=== PATIENT | male | born 1955 | race Caucasian/White ===

== ENCOUNTER 2017-04-09 18:18 | Emergency (ER) | payer OTHER ==
[~2017-04-09] VITALS: Ht 188 cm; Wt 78.0 kg
[~2017-04-09 18:18] MED LIST: CLON0.5T PO; DILT60TA PO; ENAL20TA PO; ENOX60P SQ; HYDR12.56 PO; METO50TA PO; PRAV40TA2 PO; Z.0.COMMODE-3:1; Z.0.WALKERFRONT
[2017-04-09 18:20] VITALS: BP 184/118; PULSE 113; RESP 20; TEMP 98.8; O2SAT 98
--- NOTE | 2017-04-09 21:48 | PD ---
Physical Exam Date Seen by Provider: Apr 09, 2017 Time Seen by Provider: 19:58 Narrative 61 year old male presents to the emergency department for evaluation of a scratchy, sore throat for a couple of days. He also states that he is an alcoholic and has been drinking today. His pain is 8/10. Data Data Last Documented VS Vital Signs Date Time Temp Pulse Resp B/P (MAP) Pulse Ox O2 Delivery O2 Flow Rate FiO2 04/09/17 18:20 98.8 113 20 184/118 (140) 98 Room Air MDM Supervised Visit with ARCADIO: No Narrative Course 61 year old male presents to the emergency department for sore throat and alcoholism. Patient is initially seen in triage. He left AMA before he could be placed in a medical bed. Diagnosis Primary Impression: Left against medical advice Additional Impression: Sore throat Disposition: 07 AGAINST MEDICAL ADVICE Mena Valle Apr 09, 2017 21:48
== END 2017-04-09 22:46 | disposition left against medical advice (07) ==
LOC: NED 18:18
DX: J02.9 Acute pharyngitis, unspecified (principal)
CPT/HCPCS: 99281

== ENCOUNTER 2017-06-11 14:08 | Inpatient (IN) | payer SELFPAY ==
[2017-06-11] VITALS (15 sets, daily range): BP systolic 109–134; BP diastolic 74–102; PULSE 77–140; RESP 14–25; TEMP 98–98.3; O2SAT 94–98
[~2017-06-11] VITALS: Ht 190.5 cm; Wt 89.5 kg
[2017-06-11] MEDS ORDERED: IOHEXOL 350 MG/ML 10 ML VIAL (for RAD DIAG) IVCONTRAST ONE (14:09)
[2017-06-11] MEDS ORDERED: SODIUM CHLORIDE 0.9% FLUSH 10 ML FLUSH IV FLUSH PRN ×4 (14:30→18:15)
[2017-06-11] MEDS ORDERED: DILTIAZEM HCL 25 MG/5 ML VIAL IV PUSH ONE (14:30)
[2017-06-11] MEDS ORDERED: SODIUM CHLOR 0.9% 1000 ML INJ 1,000 ML IV ONE (14:30)
--- NOTE | 2017-06-11 14:31 | PD ---
HPI Chief Complaint: Chest Pain Time Seen by Provider: 14:23 Travel History International Travel<30 days: No Contact w/Intl Traveler<30days: No Traveled to known affect area: No History of Present Illness HPI 62-year-old male presents emergency department via [facility] complaining of chest pain, shortness of breath that started last night prior to going to bed. Patient states that his previous chest pain is 3/10, midsternal, increase with deep breaths, and nonradiating. Nothing seems to improve his pain. He says that he "cannot catch up" referring to the shortness of breath. Says he has had a cough for a number of days along with intermittent lower extremity edema for 1 week. He denies fever, chills, abdominal pain, back pain, leg pain. Says he has a history of hypertension and chronic alcohol abuse. Says that he has been feeling "shaky" today as he normally drinks large quantities of alcohol throughout the day. Says he normally drinks a sixpack and several shots and this is been chronic for several years. Says he had 2 drinks today which is abnormal for him. States he normally drinks much more than that by now. Says that he went to [facility] 3 weeks with an 'abnormal rhythm' and they converted him to 'normal'. Says this approximately 3 weeks ago and is not placed on the additional medications. Says he does not know all of his medications and that his has information. He does smoke approximately 10 cigarettes and has been for a number of years. Dr. Chandra is his PCP. [facility] Past Medical History Arthritis: Yes Autoimmune Disease: No Blood Disorders: No Anxiety: Yes Depression: No Heart Rhythm Problems: No Cancer: No Cardiovascular Problems: No High Cholesterol: Yes Chest Pain: No Congestive Heart Failure: No COPD: Yes Diabetes: No Endocrine: No Glaucoma: No Genitourinary: No Hepatitis: No Hiatal Hernia: No Hypertension: Yes Immune Disorder: No Musculoskeletal: Yes (ARTHRITIS) Neurologic: No Psychiatric: No Reproductive: No Respiratory: No Myocardial Infarction: No Thyroid Disease: No Influenza Vaccination: No Past Surgical History Abdominal Surgery: Yes (BILAT ING HERNIA) AICD: No Ear Surgery: No Eye Surgery: No Genitourinary Surgery: No Gynecologic Surgery: No Joint Replacement: Yes (BILAT HIP) Oral Surgery: No Pacemaker: No Other Surgery: Yes Social History Alcohol Use: Yes (HEAVILY) Tobacco Use: Yes (1 PPD) Substance Use: No Allergies-Medications (Allergen,Severity, Reaction): Coded Allergies: codeine (Unverified Allergy, Severe, DRY TONGUE, 11/04/16) Reported Meds & Prescriptions Reported Meds & Active Scripts Active Review of Systems Except as stated in HPI: all other systems reviewed are Neg Physical Exam Narrative GENERAL: Well-developed, well-nourished, tremulous SKIN: Focused skin assessment warm/dry. HEAD: Atraumatic. Normocephalic. EYES: Pupils equal and round. No scleral icterus. No injection or drainage. ENT: No nasal bleeding or discharge. Mucous membranes pink and moist. NECK: Trachea midline. No JVD. No lymphadenopathy CARDIOVASCULAR: Tachycardic rate, irregularly irregular. No murmur appreciated. RESPIRATORY: No accessory muscle use. Clear to auscultation. Breath sounds equal bilaterally. GASTROINTESTINAL: Abdomen soft, non-tender, nondistended. Hepatic and splenic margins not palpable. No CVA tenderness MUSCULOSKELETAL: No obvious deformities. No clubbing. No cyanosis. Mild lower extremity edema. Homans sign negative NEUROLOGICAL: Awake and alert. No obvious cranial nerve deficits. Motor grossly within normal limits. Normal speech. PSYCHIATRIC: Appropriate mood and affect; insight and judgment normal. Data Data Last Documented VS Vital Signs Date Time Temp Pulse Resp B/P (MAP) Pulse Ox O2 Delivery O2 Flow Rate FiO2 06/11/17 18:00 105 129/90 (103) 06/11/17 17:21 20 97 Room Air 06/11/17 14:26 98.0 Orders Orders Ecg Monitoring (06/11/17 14:23) Blood Pressure (06/11/17 14:23) Iv Access Insert/Monitor (06/11/17 14:23) Oximetry (06/11/17 14:23) Vital Signs (06/11/17 14:23) Diltiazem Inj (Cardizem Inj) (06/11/17 14:30) Sodium Chloride 0.9% Flush (Ns Flush) (06/11/17 14:30) Electrocardiogram (06/11/17 14:23) B-Type Natriuretic Peptide (06/11/17 14:23) Ckmb (Isoenzyme) Profile (06/11/17 14:23) Complete Blood Count With Diff (06/11/17 14:23) Comprehensive Metabolic Panel (06/11/17 14:23) Magnesium (Mg) (06/11/17 14:23) Prothrombin Time / Inr (Pt) (06/11/17 14:23) Act Partial Throm Time (Ptt) (06/11/17 14:23) Troponin I (06/11/17 14:23) Oxygen Administration (06/11/17 14:23) Ct Pulmonary Angiogram (06/11/17 14:23) Urinalysis - C+S If Indicated (06/11/17 14:23) Alcohol (Ethanol) (06/11/17 14:23) Sodium Chlor 0.9% 1000 Ml Inj (Ns 1000 M (06/11/17 14:30) Aspirin Chew (Aspirin Chew) (06/11/17 14:45) Diltiazem Inj (Cardizem Inj) (06/11/17 15:30) Diltiazem Inj (Cardizem Inj) (06/11/17 15:45) Lorazepam Inj (Ativan Inj) (06/11/17 15:45) Iohexol 350 Inj (Omnipaque 350 Inj) (06/11/17 14:09) Admit Order (Ed Use Only) (06/11/17 18:13) Labs Laboratory Tests Test 06/11/17 14:47 White Blood Count 5.6 TH/MM3 Red Blood Count 4.09 MIL/MM3 Hemoglobin 13.1 GM/DL Hematocrit 39.2 % Mean Corpuscular Volume 95.9 FL Mean Corpuscular Hemoglobin 32.0 PG Mean Corpuscular Hemoglobin Concent 33.4 % Red Cell Distribution Width 15.5 % Platelet Count 118 TH/MM3 Mean Platelet Volume 9.1 FL Neutrophils (%) (Auto) 76.5 % Lymphocytes (%) (Auto) 11.7 % Monocytes (%) (Auto) 9.4 % Eosinophils (%) (Auto) 0.6 % Basophils (%) (Auto) 1.8 % Neutrophils # (Auto) 4.3 TH/MM3 Lymphocytes # (Auto) 0.7 TH/MM3 Monocytes # (Auto) 0.5 TH/MM3 Eosinophils # (Auto) 0.0 TH/MM3 Basophils # (Auto) 0.1 TH/MM3 CBC Comment DIFF FINAL Differential Comment Prothrombin Time 11.7 SEC Prothromb Time International Ratio 1.2 RATIO Activated Partial Thromboplast Time 29.0 SEC Blood Urea Nitrogen 5 MG/DL Creatinine 0.73 MG/DL Random Glucose 83 MG/DL Total Protein 7.1 GM/DL Albumin 3.1 GM/DL Calcium Level 8.0 MG/DL Magnesium Level 1.7 MG/DL Alkaline Phosphatase 165 U/L Aspartate Amino Transf (AST/SGOT) 69 U/L Alanine Aminotransferase (ALT/SGPT) 32 U/L Total Bilirubin 0.9 MG/DL Sodium Level 142 MEQ/L Potassium Level 3.8 MEQ/L Chloride Level 110 MEQ/L Carbon Dioxide Level 21.3 MEQ/L Anion Gap 11 MEQ/L Estimat Glomerular Filtration Rate 109 ML/MIN Total Creatine Kinase 57 U/L Troponin I 0.03 NG/ML B-Type Natriuretic Peptide 1192 PG/ML Ethyl Alcohol Level 59 MG/DL [facility] Medical Decision Making Medical Screen Exam Complete: Yes Emergency Medical Condition: Yes Differential Diagnosis A fib with RVR, alcoholism, Narrative Course 62y male presents to the ED via [facility] c/o chest pain with SOB that started last night prior to going to sleep. Says he went to the hospital 3 weeks ago and found an abnormal HR. Says he was converted to 'normal' and discharged home. He does not have a spanish speaking babysitter, does not take blood thinners. He has a history of HTN and chronic alcoholism. Says he drinks a six-pack of beer and several shots of liquor daily. EKG shows atrial fibrillation with RVR at rate 148. Pt did not remember his medication list so waited until to arrive and found he was discharged in March from [facility] with multiple medications to include diltiazem and digoxin. He has not been taking these medications because 'it is a lot'. Administered ASA 162mg Diltiazem 0.25mg/kg administered, response of HR to 70-90BPM however, required another dose at 45minutes. A total of 2 doses of diltiazem (0.25 and 0.35mg/kg) administered with limited response to HR 100-120BPM. CBC & BMP Diagram 06/11/17 14:47 Total Protein 7.1, Albumin 3.1 L, Calcium Level 8.0 L, Magnesium Level 1.7, Alkaline Phosphatase 165 H, Aspartate Amino Transf (AST/SGOT) 69 H, Alanine Aminotransferase (ALT/SGPT) 32, Total Bilirubin 0.9 BNP elevated at 1192 Alcohol level 59 Pt feels much better however, HR remains in lower 100s. Denies SOB, Chest pain. Initiated diliazem drip for better rate control. Pt will be admitted for obs for A fib with RVR, CHF. CIWA protocol recommended. Diagnosis Primary Impression: Atrial fibrillation with rapid ventricular response Additional Impressions: Nonadherence to medication Chronic alcoholism CHF (congestive heart failure) Qualified Codes: I50.9 - Heart failure, unspecified Admitting Information Admitting Physician Requests: Observation Condition: Stable Elisabet Aguilar Jun 11, 2017 14:31
[2017-06-11] MEDS ORDERED: ASPIRIN 81 MG CHEW TAB CHEW ONE (14:45)
--- NOTE | 2017-06-11 15:17 | PD ---
Physical Exam Narrative I, Dr. Vides, have reviewed the advance practice practitioner's documentation and am in agreement, met with the patient face to face, made the diagnosis, and the medical decision making was done by me. *My assessment and Findings: Patient is a 62 year old male who comes in complaining of chest pain and being unable to catch his breath. Exam shows tachycardia and tremors. Data Data Last Documented VS Vital Signs Date Time Temp Pulse Resp B/P (MAP) Pulse Ox O2 Delivery O2 Flow Rate FiO2 06/11/17 17:21 111 20 115/87 (96) 97 Room Air 06/11/17 14:26 98.0 Orders Orders Ecg Monitoring (06/11/17 14:23) Blood Pressure (06/11/17 14:23) Iv Access Insert/Monitor (06/11/17 14:23) Oximetry (06/11/17 14:23) Vital Signs (06/11/17 14:23) Diltiazem Inj (Cardizem Inj) (06/11/17 14:30) Sodium Chloride 0.9% Flush (Ns Flush) (06/11/17 14:30) Electrocardiogram (06/11/17 14:23) B-Type Natriuretic Peptide (06/11/17 14:23) Ckmb (Isoenzyme) Profile (06/11/17 14:23) Complete Blood Count With Diff (06/11/17 14:23) Comprehensive Metabolic Panel (06/11/17 14:23) Magnesium (Mg) (06/11/17 14:23) Prothrombin Time / Inr (Pt) (06/11/17 14:23) Act Partial Throm Time (Ptt) (06/11/17 14:23) Troponin I (06/11/17 14:23) Oxygen Administration (06/11/17 14:23) Ct Pulmonary Angiogram (06/11/17 14:23) Urinalysis - C+S If Indicated (06/11/17 14:23) Alcohol (Ethanol) (06/11/17 14:23) Sodium Chlor 0.9% 1000 Ml Inj (Ns 1000 M (06/11/17 14:30) Aspirin Chew (Aspirin Chew) (06/11/17 14:45) Diltiazem Inj (Cardizem Inj) (06/11/17 15:30) Diltiazem Inj (Cardizem Inj) (06/11/17 15:45) Lorazepam Inj (Ativan Inj) (06/11/17 15:45) Iohexol 350 Inj (Omnipaque 350 Inj) (06/11/17 14:09) Admit Order (Ed Use Only) (06/11/17 18:13) Labs Laboratory Tests Test 06/11/17 14:47 White Blood Count 5.6 TH/MM3 Red Blood Count 4.09 MIL/MM3 Hemoglobin 13.1 GM/DL Hematocrit 39.2 % Mean Corpuscular Volume 95.9 FL Mean Corpuscular Hemoglobin 32.0 PG Mean Corpuscular Hemoglobin Concent 33.4 % Red Cell Distribution Width 15.5 % Platelet Count 118 TH/MM3 Mean Platelet Volume 9.1 FL Neutrophils (%) (Auto) 76.5 % Lymphocytes (%) (Auto) 11.7 % Monocytes (%) (Auto) 9.4 % Eosinophils (%) (Auto) 0.6 % Basophils (%) (Auto) 1.8 % Neutrophils # (Auto) 4.3 TH/MM3 Lymphocytes # (Auto) 0.7 TH/MM3 Monocytes # (Auto) 0.5 TH/MM3 Eosinophils # (Auto) 0.0 TH/MM3 Basophils # (Auto) 0.1 TH/MM3 CBC Comment DIFF FINAL Differential Comment Prothrombin Time 11.7 SEC Prothromb Time International Ratio 1.2 RATIO Activated Partial Thromboplast Time 29.0 SEC Blood Urea Nitrogen 5 MG/DL Creatinine 0.73 MG/DL Random Glucose 83 MG/DL Total Protein 7.1 GM/DL Albumin 3.1 GM/DL Calcium Level 8.0 MG/DL Magnesium Level 1.7 MG/DL Alkaline Phosphatase 165 U/L Aspartate Amino Transf (AST/SGOT) 69 U/L Alanine Aminotransferase (ALT/SGPT) 32 U/L Total Bilirubin 0.9 MG/DL Sodium Level 142 MEQ/L Potassium Level 3.8 MEQ/L Chloride Level 110 MEQ/L Carbon Dioxide Level 21.3 MEQ/L Anion Gap 11 MEQ/L Estimat Glomerular Filtration Rate 109 ML/MIN Total Creatine Kinase 57 U/L Troponin I 0.03 NG/ML B-Type Natriuretic Peptide 1192 PG/ML Ethyl Alcohol Level 59 MG/DL [facility] Supervised Visit with ARCADIO: Yes Narrative Course ECG shows afib with RVR . Patient given Cardizem. Labs show elevated BNP. Started on Cardizem drip. Given Ativan for alcohol withdrawal. Admitted for further management. Diagnosis Primary Impression: Atrial fibrillation with rapid ventricular response Admitting Information Admitting Physician Requests: Admit Condition: Stable Ciara Vides MD Jun 11, 2017 15:17
[2017-06-11 15:20] LABS: AUTOMATED NEUTROPHIL # 4.3 TH/MM3 (1.8-7.7); BASOPHIL # 0.1 TH/MM3 (0-0.2); BASOPHIL % 1.8 % (0.0-2.0); EOSINOPHIL % 0.6 % (0.0-4.0); HEMATOCRIT 39.2 % (39.0-51.0); HEMOGLOBIN 13.1 GM/DL (13.0-17.0); LYMPH % 11.7 % (9.0-44.0); LYMPHOCYTE # 0.7 TH/MM3 (1.0-4.8); MEAN CELL VOLUME 95.9 FL (80.0-100.0); MEAN CORPUSCULAR HGB CONC 33.4 % (32.0-36.0); MEAN PLATELET VOLUME 9.1 FL (7.0-11.0); MONO % 9.4 % (0.0-8.0); MONOCYTE # 0.5 TH/MM3 (0-0.9); NEUT % 76.5 % (16.0-70.0); PLATELET COUNT 118 TH/MM3 (150-450); RED BLOOD COUNT 4.09 MIL/MM3 (4.50-5.90); RED CELL DISTRIBUTION WIDTH 15.5 % (11.6-17.2); WHITE BLOOD COUNT 5.6 TH/MM3 (4.0-11.0)
[2017-06-11] MEDS ORDERED: DILTIAZEM INJ 125 MG in SODIUM CHLORIDE 0.9% INJ 100 ML IV PRN (15:30)
[2017-06-11 15:33] LABS: INTERNATIONAL NORMALIZED RATIO 1.2 RATIO; PROTHROMBIN TIME - PATIENT 11.7 SEC (9.8-11.6)
[2017-06-11] MEDS ORDERED: DILTIAZEM HCL 50 MG/10 ML VIAL IV PUSH ONE (15:45)
[2017-06-11] MEDS ORDERED: LORazepam 2 MG/ML VIAL IV PUSH ONE (15:45)
[2017-06-11 15:54] LABS: ALBUMIN 3.1 GM/DL (3.4-5.0); AST (GOT) 69 U/L (15-37); BICARBONATE 21.3 MEQ/L (21.0-32.0); BLOOD UREA NITROGEN 5 MG/DL (7-18); CHLORIDE 110 MEQ/L (98-107); CREATININE 0.73 MG/DL (0.60-1.30); GLOMERULAR FILTRATION RATE 109 ML/MIN (>89); GLUCOSE,RANDOM 83 MG/DL (74-106); MAGNESIUM 1.7 MG/DL (1.5-2.5); SODIUM (NA) 142 MEQ/L (136-145)
[2017-06-11 15:58] LABS: ALKALINE PHOSPHATASE 165 U/L (45-117); ALT (GPT) 32 U/L (12-78); TOTAL BILIRUBIN ADULT 0.9 MG/DL (0.2-1.0); TOTAL PROTEIN 7.1 GM/DL (6.4-8.2); TROPONIN I 0.03 NG/ML (0.02-0.05)
--- NOTE | 2017-06-11 17:34 | RADRPT ---
EXAM DATE/TIME: 06/11/2017 16:55 [place] COMPARISON: No previous studies available for comparison. INDICATIONS : Shortness of breath, productive cough. IV CONTRAST: 100 cc Omnipaque 350 (iohexol) IV RADIATION DOSE: 10.54 CTDIvol (mGy) MEDICAL HISTORY : Chronic obstructive pulmonary disease. Hypertension. SURGICAL HISTORY : None. ENCOUNTER: Initial ACUITY: 1 day PAIN SCALE: 0/10 LOCATION: Bilateral chest TECHNIQUE: Volumetric scanning of the chest was performed using a pulmonary embolism protocol MIP images were re constructed. Using automated exposure control and adjustment of the mA and/or kV according to patien t size, radiation dose was kept as low as reasonably achievable to obtain optimal diagnostic quality images. DICOM format image data is available electronically for review and comparison. Follow-up recommendations for detected pulmonary nodules are based at a minimum on nodule size and pa tient risk factors according to Fleischner Society Guidelines. FINDINGS: PULMONARY ARTERIES: No filling defects are seen in the pulmonary arteries through the segmental level. LUNGS: There is no consolidation or pneumothorax . No concerning pulmonary nodule is visualized. PLEURAE: Small bilateral pleural effusions with adjacent compressive atelectasis are noted. MEDIASTINUM: There is good visualization of the great vessels of the middle mediastinum. No evidence of mediastin al or hilar adenopathy/mass. Cardiomegaly and coronary artery calcifications are noted. MUSCULOSKELETAL: Degenerative changes and scoliosis of the thoracic spine are noted. MISCELLANEOUS: The visualized upper abdominal organs demonstrate no acute abnormality. Some ascites is noted within the right upper quadrant. CONCLUSION: 1. No evidence of pulmonary embolism. 2. Small bilateral pleural effusions with adjacent compressive atelectasis. 3. Some ascites within the right upper quadrant. 4. Cardiomegaly and coronary artery calcifications. 5. Degenerative changes and scoliosis of the thoracic spine are noted. Corbin Diamond MD on June 11, 2017 at 17:28 Board Certified Radiologist. This report was verified electronically.
[2017-06-11] MEDS ORDERED: BISACODYL 10 MG SUPP RECTAL PRN (18:15)
[2017-06-11] MEDS ORDERED: SENNOSIDES 8.6 MG TAB PO PRN (18:15)
[2017-06-11] MEDS ORDERED: ACETAMINOPHEN 325 MG TAB PO PRN ×2 (18:15)
[2017-06-11] MEDS ORDERED: LACTULOSE SYRUP 20 GM/30 ML CUP PO PRN (18:15)
[2017-06-11] MEDS ORDERED: LORazepam 2 MG/ML VIAL IV PUSH PRN ×4 (18:15)
[2017-06-11] MEDS ORDERED: FLUMAZENIL 0.5 MG/5 ML VIAL IV PUSH PRN (18:15)
[2017-06-11] MEDS ORDERED: ONDANSETRON HCL 4 MG/2 ML VIAL IVP PRN (18:15)
[2017-06-11] MEDS ORDERED: MULTIVITAMINS/MINERALS THERAPEUTIC TAB PO SCH (18:15)
[2017-06-11] MEDS ORDERED: NALOXONE HCL 0.4 MG/ML AMP IV PUSH PRN (18:15)
[2017-06-11] MEDS ORDERED: HALOPERIDOL LACTATE 5 MG/ML AMP IM PRN (18:15)
[2017-06-11] MEDS ORDERED: MORPHINE SULFATE 2 MG/ML INJ IV PUSH PRN ×3 (18:15)
[2017-06-11] MEDS ORDERED: LORazepam 2 MG TAB PO PRN (18:15)
[2017-06-11] MEDS ORDERED: FOLIC ACID 1 MG TAB PO SCH (18:15)
[2017-06-11] MEDS ORDERED: THIAMINE HCL 100 MG TAB PO SCH (18:15)
[2017-06-11] MEDS ORDERED: METOCLOPRAMIDE HCL 10 MG/2 ML VIAL IV PUSH PRN (18:15)
[2017-06-11] MEDS ORDERED: MAGNESIUM HYDROXIDE SUSP 30 ML CUP PO PRN (18:15)
[2017-06-11] MEDS ORDERED: cloNIDine HCL 0.1 MG TAB PO PRN (18:15)
[2017-06-11] MEDS ORDERED: oxyCODONE/ACETAMINOPHEN 10 MG/325 MG TAB PO PRN (18:15)
[2017-06-11] MEDS ORDERED: oxyCODONE/ACETAMINOPHEN 5 MG/325 MG TAB PO PRN (18:15)
[2017-06-11] MEDS ORDERED: SODIUM CHLOR 0.9% 1000 ML INJ 1,000 ML IV SCH (20:00)
[2017-06-11 20:19] LABS: PHOSPHORUS 2.2 MG/DL (2.5-4.9); TROPONIN I 0.02 NG/ML (0.02-0.05)
[2017-06-11 20:29] LABS: MAGNESIUM 1.5 MG/DL (1.5-2.5)
[2017-06-11] MEDS: LORazepam 1 MG TAB PO PRN (20:47)
[2017-06-11] MEDS ORDERED: SODIUM CHLORIDE 0.9% FLUSH 10 ML FLUSH IV FLUSH SCH ×2 (21:00)
[2017-06-11] MEDS ORDERED: DOCUSATE SODIUM 50 MG/SENNA 8.6 MG TAB PO SCH (21:00)
[2017-06-11] MEDS: SODIUM CHLORIDE 0.9% FLUSH 10 ML FLUSH IV FLUSH SCH (22:01)
[2017-06-11] MEDS: ENOXAPARIN SODIUM 100 MG/ML SYRINGE SQ SCH (22:01)
[2017-06-11] MEDS: METOPROLOL TARTRATE 25 MG TAB PO SCH (22:02)
[2017-06-11] MEDS: PANTOPRAZOLE SOD 40 MG DELAYED RELEASE TAB PO SCH (22:02)
--- NOTE | 2017-06-11 23:38 | HHI.HP ---
HPI Service [facility] Hospitalists Primary Care Physician Gualberto Chandra, DO Admission Diagnosis A fib w RVR, CHF Diagnoses: Travel History International Travel<30 Days: No Contact w/Intl Traveler <30 Da: No Traveled to Known Affected Are: No History of Present Illness History from patient, and review of medical records. Patient reported that he came to the hospital because he was having a hard time breathing last night. He reports he took a medicine that "takes heart beat out of rhythm" for this at home but it did not help. He reports this shortness of breath was getting worse during the night and by the morning. He finally came to the hospital in the afternoon.. He denies any fever. However was having quite a bit of coughing with whitish/yellowish sputum. Reports of associated chest pains with this cough. The cough has been going on for a couple of weeks now. He described it as a tickle which is then followed by gagging cough. He denies any nausea/vomiting/diarrhea/abdominal pain. Denies any hematemesis/hematochezia/melena/hematuria. He does report of peripheral edema but stated that this comes and goes. It has been going on for a few weeks. Patient states that he was at [facility] for about 9 days hospitalization. He was discharged about 3 weeks ago. He states he was having palpitations and had magnesium given to him to control his heart rate. He denies having had a shock or cardioversion done there. He stated that the doctors didn't mention it though. He states that he was prescribed medications as discharge but he has not been taking his medications for about 4 days now. Patient admits to drinking about 7 beers a day. His last drink was about 3 days ago. In the emergency room, patient was noted to be in A. fib with RVR and was started on Cardizem drip. Review of Systems Except as stated in HPI: all other systems reviewed are Neg Past Family Social History Past Medical History htn afib- newly diagnosed about 3 weeks ago copd Past Surgical History double hernia sx bilateral hip replacement Allergies: Coded Allergies: codeine (Unverified Allergy, Severe, DRY TONGUE, 8/15/17) Family History none that he knows of. but has limited info Social History half a pack a day, started at age 16 yo or so drinks about 7 beers a day no drugs abuse lives with family , still driving Physical Exam Vital Signs Vital Signs Date Time Temp Pulse Resp B/P (MAP) Pulse Ox O2 Delivery O2 Flow Rate FiO2 06/11/17 21:59 96 113/92 06/11/17 20:39 06/11/17 20:00 107 126/102 06/11/17 19:20 96 06/11/17 19:07 115 129/98 06/11/17 18:57 117 24 129/98 (108) 95 Room Air 06/11/17 18:51 21 06/11/17 18:00 105 129/90 (103) 06/11/17 17:35 90 06/11/17 17:21 111 20 115/87 (96) 97 Room Air 06/11/17 16:15 82 113/89 (97) 96 Room Air 06/11/17 15:50 81 22 121/90 (100) 94 Room Air 06/11/17 15:37 77 116/86 (96) 94 Room Air 06/11/17 15:23 132 25 126/91 (103) 95 Room Air 06/11/17 14:27 140 16 134/89 (104) 96 Room Air 06/11/17 14:26 98.0 121 14 134/89 (104) 96 Room Air 06/11/17 14:22 Room Air Physical Exam GENERAL: This is a well-nourished, well-developed patient, in no apparent distress. Tremulous SKIN: Flushed skin HEAD: Atraumatic. Normocephalic. No temporal or scalp tenderness. EYES: No scleral icterus. No injection or drainage. ENT: Nose without bleeding, purulent drainage or septal hematoma. Airway patent. NECK: Trachea midline. No JVD. Supple, nontender, no meningeal signs. CARDIOVASCULAR: Regular rate and rhythm without murmurs, gallops, or rubs. RESPIRATORY: Bilateral mild expiratory wheezing. GASTROINTESTINAL: Abdomen soft, non-tender, nondistended. No guarding. MUSCULOSKELETAL: Extremities without clubbing, cyanosis, or edema. No calf tenderness. NEUROLOGICAL: Awake and alert Motor and sensory grossly within normal limits. Normal speech. Laboratory Laboratory Tests Test 06/11/17 14:47 06/11/17 18:50 White Blood Count 5.6 Red Blood Count 4.09 Hemoglobin 13.1 Hematocrit 39.2 Mean Corpuscular Volume 95.9 Mean Corpuscular Hemoglobin 32.0 Mean Corpuscular Hemoglobin Concent 33.4 Red Cell Distribution Width 15.5 Platelet Count 118 Mean Platelet Volume 9.1 Neutrophils (%) (Auto) 76.5 Lymphocytes (%) (Auto) 11.7 Monocytes (%) (Auto) 9.4 Eosinophils (%) (Auto) 0.6 Basophils (%) (Auto) 1.8 Neutrophils # (Auto) 4.3 Lymphocytes # (Auto) 0.7 Monocytes # (Auto) 0.5 Eosinophils # (Auto) 0.0 Basophils # (Auto) 0.1 CBC Comment DIFF FINAL Differential Comment Prothrombin Time 11.7 Prothromb Time International Ratio 1.2 Activated Partial Thromboplast Time 29.0 Blood Urea Nitrogen 5 Creatinine 0.73 Random Glucose 83 Total Protein 7.1 Albumin 3.1 Calcium Level 8.0 Magnesium Level 1.7 1.5 Alkaline Phosphatase 165 Aspartate Amino Transf (AST/SGOT) 69 Alanine Aminotransferase (ALT/SGPT) 32 Total Bilirubin 0.9 Sodium Level 142 Potassium Level 3.8 Chloride Level 110 Carbon Dioxide Level 21.3 Anion Gap 11 Estimat Glomerular Filtration Rate 109 Total Creatine Kinase 57 50 Troponin I 0.03 0.02 B-Type Natriuretic Peptide 1192 Ethyl Alcohol Level 59 10 Phosphorus Level 2.2 Result Diagram: 06/11/17 1447 06/11/17 1447 Imaging Last [address] Angiography 06/11/17 1423 Signed Impressions: Service Date/Time: May 16:55 - CONCLUSION: 1. No evidence of pulmonary embolism. 2. Small bilateral pleural effusions with adjacent compressive atelectasis. 3. Some ascites within the right upper quadrant. 4. Cardiomegaly and coronary artery calcifications. 5. Degenerative changes and scoliosis of the thoracic spine are noted. MD Carmelo Mendozai VTE Risk Assessment Carmeloi VTE Risk Assessment: Mod/High Risk (score >= 2) Caprini Risk Assessment Model Point Value = 1 Point Value = 2 Point Value = 3 Point Value = 5 Age 41-60 Minor surgery BMI > 25 kg/m2 Swollen legs Varicose veins or History of unexplained or recurrent spontaneous Oral contraceptives or hormone replacement Sepsis (< 1 month) Serious lung disease, including pneumonia (< 1 month) Abnormal pulmonary function Acute myocardial infarction Congestive heart failure (< 1 month) History of inflammatory bowel disease Medical patient at bed rest Age 61-74 Arthroscopic surgery Major open surgery (> 45 min) Laparoscopic surgery (> 45 min) Malignancy Confined to bed (> 72 hours) Immobilizing plaster cast Central venous access Age >= 75 History of VTE Family history of VTE Factor V Leiden Prothrombin [id number] Lupus anticoagulant Anticardiolipin antibodies Elevated serum homocysteine Heparin-induced thrombocytopenia Other congenital or acquired thrombophilia Stroke (< 1 month) Elective arthroplasty Hip, pelvis, or leg fracture Acute spinal cord injury (< 1 month) Prophylaxis Regimen Total Risk Factor Score Risk Level Prophylaxis Regimen 0-1 Low Early ambulation 2 Moderate Order ONE of the following: *Sequential Compression Device (SCD) *Heparin 5000 units SQ BID 3-4 Higher Order ONE of the following medications: *Heparin 5000 units SQ TID *Enoxaparin/Lovenox 40 mg SQ daily (WT < 150 kg, CrCl > 30 mL/min) *Enoxaparin/Lovenox 30 mg SQ daily (WT < 150 kg, CrCl > 10-29 mL/min) *Enoxaparin/Lovenox 30 mg SQ BID (WT < 150 kg, CrCl > 30 mL/min) AND/OR *Sequential Compression Device (SCD) 5 or more Highest Order ONE of the following medications: *Heparin 5000 units SQ TID (Preferred with Epidurals) *Enoxaparin/Lovenox 40 mg SQ daily (WT < 150 kg, CrCl > 30 mL/min) *Enoxaparin/Lovenox 30 mg SQ daily (WT < 150 kg, CrCl > 10-29 mL/min) *Enoxaparin/Lovenox 30 mg SQ BID (WT < 150 kg, CrCl > 30 mL/min) AND *Sequential Compression Device (SCD) Assessment and Plan Assessment and Plan Impression: CHF exacerbation. Likely acute on chronic. No prior echocardiogram on record. Alcohol withdrawal. Impending DT. A. fib with RVR. Secondary to alcohol withdrawal. Hypertension Atrial fibrillation. Newly diagnosed about 3 weeks ago. COPD Plan: Serial cardiac enzymes and EKGs. We'll continue Cardizem drip. Lovenox therapeutic dose for now. Control withdrawal symptoms. CIWA protocol. Give Librium 10 mg by mouth one dose now. Start Lasix 40 mg IV every 12 hours. Echocardiogram in a.m. Obtain records from [facility]. Patient is unsure whether he had any stress tests done. Sputum cultures. Will follow electrolytes and replace as needed. DVT prophylaxis with Lovenox. GI prophylaxis on pantoprazole. We need to discuss anticoagulation with patient prior to discharge. Discussed Condition With Patient, nursing staff Physician Certification 2 Midnight Certification Type: Admission for Inpatient Services Order for Inpatient Services The services are ordered in accordance with Medicare regulations or non- Medicare payer requirements, as applicable. In the case of services not specified as inpatient-only, they are appropriately provided as inpatient services in accordance with the 2-midnight benchmark. Estimated LOS (days): 2 days is the estimated time the patient will need to remain in the hospital, assuming treatment plan goals are met and no additional complications. Post-Hospital Plan: Home Luisana Vasques MD Jun 11, 2017 23:38
[2017-06-11] MEDS ORDERED: FUROSEMIDE 40 MG/4 ML VIAL IV PUSH ONE (23:45)
[2017-06-12] VITALS (32 sets, daily range): BP systolic 114–136; BP diastolic 77–102; PULSE 86–140; RESP 16–20; TEMP 97.5–98.6; O2SAT 95–99
[2017-06-12 03:17] LABS: AUTOMATED NEUTROPHIL # 3.7 TH/MM3 (1.8-7.7); BASOPHIL # 0.1 TH/MM3 (0-0.2); BASOPHIL % 2.6 % (0.0-2.0); EOSINOPHIL % 0.8 % (0.0-4.0); HEMATOCRIT 38.9 % (39.0-51.0); HEMOGLOBIN 13.1 GM/DL (13.0-17.0); LYMPHOCYTE # 0.8 TH/MM3 (1.0-4.8); MEAN CELL VOLUME 94.8 FL (80.0-100.0); MEAN CORPUSCULAR HGB CONC 33.7 % (32.0-36.0); MONO % 10.6 % (0.0-8.0); MONOCYTE # 0.6 TH/MM3 (0-0.9); PLATELET COUNT 104 TH/MM3 (150-450); RED BLOOD COUNT 4.11 MIL/MM3 (4.50-5.90); RED CELL DISTRIBUTION WIDTH 15.8 % (11.6-17.2); WHITE BLOOD COUNT 5.3 TH/MM3 (4.0-11.0)
[2017-06-12 03:35] LABS: ALBUMIN 3.2 GM/DL (3.4-5.0); AST (GOT) 61 U/L (15-37); BICARBONATE 22.8 MEQ/L (21.0-32.0); BLOOD UREA NITROGEN 8 MG/DL (7-18); CALCIUM 7.7 MG/DL (8.5-10.1); CHLORIDE 111 MEQ/L (98-107); CREATININE 0.78 MG/DL (0.60-1.30); GLOMERULAR FILTRATION RATE 101 ML/MIN (>89); GLUCOSE,RANDOM 92 MG/DL (74-106); MAGNESIUM 1.7 MG/DL (1.5-2.5); SODIUM (NA) 144 MEQ/L (136-145)
[2017-06-12 03:45] LABS: ALKALINE PHOSPHATASE 172 U/L (45-117); ALT (GPT) 33 U/L (12-78); FREE T4 1.21 NG/DL (0.76-1.46); PHOSPHORUS 1.9 MG/DL (2.5-4.9); TOTAL BILIRUBIN ADULT 1.2 MG/DL (0.2-1.0); TOTAL PROTEIN 7.2 GM/DL (6.4-8.2); TROPONIN I 0.03 NG/ML (0.02-0.05)
[2017-06-12] MEDS ORDERED: MAGNESIUM SULFATE 1 GM PREMIX 100 ML IV ONE (08:00)
[2017-06-12] MEDS ORDERED: POTASSIUM CHLORIDE 20 MEQ CONTROLLED RELEASE TAB PO ONE (08:00)
[2017-06-12] MEDS: ENOXAPARIN SODIUM 100 MG/ML SYRINGE SQ SCH ×2 (08:58→21:32)
[2017-06-12] MEDS: PANTOPRAZOLE SOD 40 MG DELAYED RELEASE TAB PO SCH (08:59)
[2017-06-12] MEDS: METOPROLOL TARTRATE 25 MG TAB PO SCH ×2 (08:59→21:34)
[2017-06-12] MEDS: SODIUM CHLORIDE 0.9% FLUSH 10 ML FLUSH IV FLUSH SCH ×2 (09:00→21:34)
[2017-06-12] MEDS: FUROSEMIDE 40 MG/4 ML VIAL IV PUSH SCH ×2 (09:00→17:13)
[2017-06-12] MEDS ORDERED: ASPIRIN 325 MG TAB PO SCH (09:00)
[2017-06-12] MEDS: LORazepam 1 MG TAB PO PRN ×2 (09:12→17:11)
--- NOTE | 2017-06-12 12:09 | HHI.PR ---
Subjective Remarks Follow-up CHF exacerbation/A. fib with RVR 06/11/17-patient seen and examined, denies any significant shortness of breath, chest pain. Bilateral hand tremors Objective Vitals Vital Signs Date Time Temp Pulse Resp B/P (MAP) Pulse Ox O2 Delivery O2 Flow Rate FiO2 06/12/17 08:30 98.5 108 18 130/98 (109) 99 06/12/17 06:00 92 06/12/17 05:02 98.4 96 16 122/94 (103) 96 06/12/17 05:00 88 06/12/17 04:00 88 06/12/17 03:00 110 06/12/17 02:00 92 06/12/17 01:00 91 06/12/17 00:00 86 06/11/17 23:00 90 06/11/17 23:00 98.3 95 16 109/74 (86) 96 06/11/17 22:00 92 06/11/17 21:59 96 113/92 06/11/17 21:00 91 06/11/17 20:39 06/11/17 20:00 98.3 107 16 126/102 (110) 98 06/11/17 20:00 107 126/102 06/11/17 19:20 96 06/11/17 19:07 115 129/98 06/11/17 18:57 117 24 129/98 (108) 95 Room Air 06/11/17 18:51 21 06/11/17 18:00 105 129/90 (103) 06/11/17 17:35 90 06/11/17 17:21 111 20 115/87 (96) 97 Room Air 06/11/17 16:15 82 113/89 (97) 96 Room Air 06/11/17 15:50 81 22 121/90 (100) 94 Room Air 06/11/17 15:37 77 116/86 (96) 94 Room Air 06/11/17 15:23 132 25 126/91 (103) 95 Room Air 06/11/17 14:27 140 16 134/89 (104) 96 Room Air 06/11/17 14:26 98.0 121 14 134/89 (104) 96 Room Air 06/11/17 14:22 Room Air I/O 06/11/17 06/11/17 06/11/17 06/12/17 3/23/18 3/23/18 07:00 15:00 23:00 07:00 15:00 23:00 Intake Total 1000 ml 800 ml 680 ml Output Total 1500 ml Balance 1000 ml 800 ml -820 ml Intake Oral 680 ml IV Total 1000 ml 800 ml Output Urine Total 1500 ml Result Diagram: 06/12/17 0258 06/12/17 [address] Angiography 06/11/17 1423 Signed Impressions: Service Date/Time: May 16:55 - CONCLUSION: 1. No evidence of pulmonary embolism. 2. Small bilateral pleural effusions with adjacent compressive atelectasis. 3. Some ascites within the right upper quadrant. 4. Cardiomegaly and coronary artery calcifications. 5. Degenerative changes and scoliosis of the thoracic spine are noted. Corbin Diamond MD Objective Remarks GENERAL: NAD with bilateral hand tremors SKIN: Warm and dry. HEAD: Normocephalic. EYES: No scleral icterus. No injection or drainage. NECK: Supple, trachea midline. No JVD or lymphadenopathy. CARDIOVASCULAR: Irregular Regular rate and rhythm without murmurs, gallops, or rubs. RESPIRATORY: Breath sounds equal bilaterally. No accessory muscle use. GASTROINTESTINAL: Abdomen soft, non-tender, nondistended. MUSCULOSKELETAL: No cyanosis, or edema. BACK: Nontender without obvious deformity. No CVA tenderness. A/P Problem List: (1) Atrial fibrillation with rapid ventricular response ICD Code: I48.91 - Unspecified atrial fibrillation Status: Acute (2) Acute exacerbation of congestive heart failure ICD Code: I50.9 - Heart failure, unspecified (3) Alcohol abuse ICD Code: F10.10 - Alcohol abuse, uncomplicated Assessment and Plan 62-year-old man with Acute on chronic CHF exacerbation-unknown type Currently on Lasix 40 mg IV twice a day 2-D echo pending ACS ruled out per protocol with serial cardiac enzyme and EKGs A. fib with RVR CTA negative for PE Currently on Cardizem drip, aspirin Cardiology consultation pending Although patient with [id number] score >2; however d/t medical noncompliance and history of alcohol abuse, OAC may be contraindicated Continue with subcutaneous Lovenox every 12 hours Obtain records from [facility] Alcohol abuse with sign of withdrawal CIWA protocol, rally pack, start Librium protocol Hypertension,COPD Continue outpatient medications DVT prophylaxis with Lovenox. GI prophylaxis on pantoprazole. Ba Sotomayor MD Jun 12, 2017 12:09
[2017-06-12 13:02] LABS: TROPONIN I 0.02 NG/ML (0.02-0.05)
--- NOTE | 2017-06-12 13:57 | ECHRPT ---
Indication: AFIB/AFLUTTER CONCLUSIONS The left ventricular systolic function is rwkdkzgq-[id number] reduced with an estimated ejection fra ction in the range of 35-40%. There is global left ventricular dysfunction. Mild mitral valve regurgitation. There is moderate tricuspid regurgitation. Mild pulmonary valve regurgitation. BP: 122 / 94 HR: 96 Rhythm: Atrial fibrillation MEASUREMENTS (Male / Female) Normal Values Technical Quality:Fair 2D ECHO LV Diastolic Diameter PLAX 5.9 cm 4.2 - 5.9 / 3.9 - 5.3 cm LV Systolic Diameter PLAX 5.1 cm IVS Diastolic Thickness 1.3 cm 0.6 - 1.0 / 0.6 - 0.9 cm LVPW Diastolic Thickness 1.0 cm 0.6 - 1.0 / 0.6 - 0.9 cm LV Relative Wall Thickness 0.4 RV Internal Dim ED PLAX 3.6 cm LVOT Diameter 2.4 cm LA Systolic Diameter LX 4.7 cm 3.0 - 4.0 / 2.7 - 3.8 cm LV Ejection Fraction MOD BP 33.9 % >= 55 % LV Cardiac Index MOD BP 1897.1 cm/minm LV Ejection Fraction MOD 4C 35.0 % LV Cardiac Index MOD 4C 1989.6 cm/minm LV Ejection Fraction 4C AL 35.2 % LV Cardiac Index 4C AL 2062.7 cm/minm LV Ejection Fraction MOD 2C 33.6 % LV Cardiac Index MOD 2C 1758.3 cm/minm LV Ejection Fraction 2C AL 35.9 % LV Cardiac Index 2C AL 1899.8 cm/minm LA Volume Index 42.2 cm/m 16 - 28 cm/m M-MODE Aortic Root Diameter MM 3.0 cm LA Systolic Diameter MM 4.6 cm LA Ao Ratio MM 1.5 AV Cusp Separation MM 2.3 cm DOPPLER AV Peak Velocity 100.2 cm/s AV Peak Gradient 4.0 mmHg LVOT Peak Velocity 64.0 cm/s LVOT Peak Gradient 1.6 mmHg AV Area Cont Eq pk 2.9 cm MV Area PHT 3.2 cm Mitral E Point Velocity 67.9 cm/s Mitral A Point Velocity 46.3 cm/s Mitral E to A Ratio 1.5 LV E' Lateral Velocity 10.1 cm/s Mitral E to LV E' Lateral Ratio 6.7 LV E' Septal Velocity 9.6 cm/s Mitral E to LV E' Septal Ratio 7.1 TR Peak Velocity 267.0 cm/s TR Peak Gradient 28.5 mmHg Right Atrial Pressure 10.0 mmHg Pulmonary Artery Systolic Pressu 38.5 mmHg Right Ventricular Systolic Press 38.5 mmHg FINDINGS LEFT VENTRICLE The left ventricular systolic function is mknwxdin-wh-kfyigqm reduced with an estimated ejection fra ction in the range of 35-40%. Wall thickness is measured at the upper limits of normal. There is global left ventricular dysfunction. RIGHT VENTRICLE Normal right ventricular size LEFT ATRIUM The left atrial size is moderately dilated. RIGHT ATRIUM The right atrial size is moderately dilated. ATRIAL SEPTUM Normal atrial septal thickness AORTA The aortic root and proximal ascending aorta are normal in size on limited imaging. MITRAL VALVE Mitral annular calcification is present. Structurally normal mitral valve. Mild mitral valve regurgitation. No mitral valve stenosis. AORTIC VALVE Trileaflet aortic valve. No aortic valve stenosis or regurgitation. TRICUSPID VALVE Structurally normal tricuspid valve. There is moderate tricuspid regurgitation. The estimated pulmonary arterial pressure is 39 mmHg. PULMONARY VALVE Mild pulmonary valve regurgitation. VESSELS The inferior vena cava is normal in size. PERICARDIUM No pericardial effusion. Duy Nicholson DO (Electronically Signed) Final Date:12 June 2017 13:55
[2017-06-12] MEDS ORDERED: LISINOPRIL 5 MG TAB PO ONE (17:15)
[2017-06-12] MEDS ORDERED: PILL SPLITTER OTHER PRN (17:30)
--- NOTE | 2017-06-12 19:09 | MB ---
cc: Rey Hawk MD, Arthur W MD DATE: 06/12/2017 HISTORY OF PRESENT ILLNESS: Grayson is a very pleasant 62-year-old gentleman who presents to the ER with chief complaint of shortness of breath, found to be in AFib with rapid ventricular response. He also notes chest pain 3/10 in the midsternal chest area, worse with deep breath. Otherwise, denies any fever, chills, cough, or GI bleeding, PND, orthopnea, syncope or dizziness. PAST MEDICAL HISTORY: Includes hypertension, chronic alcohol abuse, history of arthritis, anxiety, hyperlipidemia, COPD, hypertension, bilateral inguinal hernia, bilateral hip replacement. SOCIAL HISTORY: Drinks alcohol heavily every day. Smokes a pack of cigarettes a day. ALLERGIES: CODEINE. MEDICATIONS: In the hospital, potassium 20 mEq daily, Librium 10 mg q.i.d., aspirin 325 daily, furosemide 40 mg IV b.i.d., metoprolol 25 mg p.o. b.i.d., Lovenox 80 subcu q. 12 hours, pantoprazole 40 p.o. daily, Cardizem drip, folic acid 1 mg daily, thiamine 100 mg daily, multivitamins 1 tab daily. PHYSICAL EXAMINATION VITAL SIGNS: Pulse ranging between 104 and 140, blood pressure 118/93, respiratory rate 18, temperature 98.4. GENERAL: He is alert and oriented x3, in no acute distress. NECK: Supple. No JVD. No bruit. CARDIOVASCULAR: S1, S2. No murmurs, rubs or gallops. Rhythm is irregular and he is tachycardic. LUNGS: Notable for decreased air movement at the bases bilaterally. ABDOMEN: Soft, nontender, nondistended with positive bowel sounds. EXTREMITIES: No lower extremity edema. IMAGING STUDIES: CT of the chest shows no pulmonary embolus. There are small bilateral pleural effusions with adjacent compressive atelectasis, some ascites within the right upper quadrant, cardiomegaly and coronary artery calcifications, degenerative changes and scoliosis of the thoracic spine are noted. LABORATORY DATA: White count 5.3, hemoglobin 13.1, hematocrit 38.9, platelet count 104. Sodium 144, potassium 3.9, chloride 111, BUN 8, creatinine 0.78. BNP is 1192. Troponin is 0.02, 0.03, and 0.02. TSH is 2.690. AST is 61, ALT 33. His INR is 1.2. CARDIOLOGY STUDIES His EKG shows atrial fibrillation at a rate of 148 beats per minute, nonspecific ST-T wave changes. 2-D echo - EF 35% to 40%, mild MR, moderate TR, PA pressure estimated at 38.5 mmHg. DIAGNOSES: 1. Atrial fibrillation with rapid ventricular response. 2. Cardiomyopathy. 3. Mitral regurgitation. 4. Decompensated congestive heart failure. 5. Alcoholism. 6. Tobacco abuse. 7. Thrombocytopenia. 8. Coronary artery disease. 9. Pleural effusions. 10. Elevated liver enzymes. DISCUSSION: The patient's CHADS-VASc score is at least 3; therefore, Coumadin or novel oral anticoagulant agent is indicated to reduce his risk of stroke, which I have explained to him and advised him and certainly explained to him that he needs to be abstinent from alcohol as this would be high risk for bleeding and/or falls or noncompliance and serious life threatening adverse sequelae due to those issues. We discussed with case management these issues and helping him with either INR checks and/or affording a novel oral anticoagulant agent as he currently has no insurance. I strongly recommend smoking cessation and alcohol abstinence. His liver enzymes are elevated. Therefore, statins are relatively contraindicated and he continues to drink large quantities of alcohol. He is currently being treated with aspirin and Lovenox. The patient is also undecided about being on Coumadin or novel oral anticoagulant agent. Beta darrel therapy is appropriate and this can be up titrated to not only control his heart rate but also to treat his cardiomyopathy. He is being treated with diuretics appropriately for his decompensated congestive heart failure. CATHLEEN inhibitors are also indicated. I will start him on Altace 2.5 daily. MD ANNIE Reeves//norberto , 05:03 PM , 05:55 PM
[2017-06-12 19:21] LABS: HEMOGLOBIN A1C 4.9 % (4.3-6.0)
[2017-06-12] MEDS: DILTIAZEM INJ 125 MG in SODIUM CHLORIDE 0.9% INJ 100 ML IV PRN (19:38)
--- NOTE | 2017-06-12 20:29 | EKG ---
Date Performed: 06/11/2017 Time Performed: 14:20:45 PTAGE: 62 years EKG: ATRIAL FIBRILLATION WITH RAPID VENTRICULAR RESPONSE POSSIBLE RIGHT VENTRICULAR CONDUCTION D ELAY NONSPECIFIC T-WAVE ABNORMALITY PROLONGED CORRECTED QT INTERVAL ABNORMAL RHYTHM ECG PREVIOUS TRACING : 03/20/2014 09.07 DOCTOR: Rey Hawk Interpretating Date/Time 06/12/2017 20:27:31
[2017-06-13] VITALS (8 sets, daily range): BP systolic 139; BP diastolic 98; PULSE 96–114; RESP 16; O2SAT 96
[2017-06-13] MEDS: DILTIAZEM INJ 125 MG in SODIUM CHLORIDE 0.9% INJ 100 ML IV PRN (04:43)
[2017-06-13] MEDS: LORazepam 1 MG TAB PO PRN (04:50)
[2017-06-13] MEDS ORDERED: LISINOPRIL 5 MG TAB PO SCH (09:00)
[2017-06-13] MEDS ORDERED: METOPROLOL TARTRATE 50 MG TAB PO SCH (09:00)
[2017-06-13] MEDS ORDERED: POTASSIUM CHLORIDE 20 MEQ CONTROLLED RELEASE TAB PO SCH (09:00)
== END 2017-06-13 09:41 | disposition left against medical advice (07) | DRG 309 ==
LOC: NEPC 14:08 → NEDA 18:14 → HCIS 20:18
PROVIDERS: ADMIT Family Medicine; ATTEND Family Medicine
DX: I48.91 Unspecified atrial fibrillation (principal); F10.239 Alcohol dependence with withdrawal, unspecified; I50.9 Heart failure, unspecified; D69.6 Thrombocytopenia, unspecified; R00.0 Tachycardia, unspecified; I42.9 Cardiomyopathy, unspecified; I11.0 Hypertensive heart disease with heart failure; F41.9 Anxiety disorder, unspecified; E78.00 Pure hypercholesterolemia, unspecified; J44.9 Chronic obstructive pulmonary disease, unspecified; E78.5 Hyperlipidemia, unspecified; I34.0 Nonrheumatic mitral (valve) insufficiency; I25.10 Atherosclerotic heart disease of native coronary artery without angina pectoris; R74.8 Abnormal levels of other serum enzymes; M19.90 Unspecified osteoarthritis, unspecified site; Y90.2 Blood alcohol level of 40-59 mg/100 ml; F17.210 Nicotine dependence, cigarettes, uncomplicated; Z96.643 Presence of artificial hip joint, bilateral; Z91.14 Patient's other noncompliance with medication regimen
CPT/HCPCS: 71275; 80053; 80307; 82550; 83036; 83735; 83880; 84100; 84439; 84443; 84484; 85025; 85610; 85730; 93005; 93306; 96361; 96374; 96375; J1650; J1940; J2060; J3475; J7030; Q9967